=== PATIENT | female | born 1990 | race Two or more races ===

== ENCOUNTER 2016-11-18 09:32 | Emergency (ER) | payer OTHER, MEDICAID ==
[~2016-11-18] VITALS: Ht 165.1 cm; Wt 56.7 kg
[2016-11-18 09:32] VITALS: BP 128/90
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
[2016-11-18] MEDS ORDERED: IBUPROFEN600 MG ORAL (10:13)
[2016-11-18] MEDS ORDERED: CYCLOBENZAPRINE10 MG ORAL (10:13)
[2016-11-18 10:26] VITALS: BP 128/90
[2016-11-18] MEDS ORDERED: [UNRECOGNIZED DRUG - OTHER] (10:37)
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
== END 2016-11-18 10:36 | disposition home or self-care (01) ==
LOC: EDBD 09:32 → EMR 09:59
DX: S40.012A Contusion of left shoulder, initial encounter (principal); V43.62XA Car passenger injured in collision with other type car in traffic accident, initial encounter; Y92.410 Unspecified street and highway as the place of occurrence of the external cause; Y99.8 Other external cause status
CPT/HCPCS: 99283